=== PATIENT | female | born 1995 | race Caucasian/White ===

== ENCOUNTER 2019-06-27 17:34 | Emergency (ER) | payer OTHER ==
[~2019-06-27] VITALS: Ht 170.2 cm; Wt 87.7 kg
[~2019-06-27 17:34] MED LIST: ALBUTEROL SULFAT3 M3 IH
[2019-06-27 17:38] VITALS: BP 124/67; TEMP 97.7
[2019-06-27 18:21] LABS: BASO % 0.3 % (0.0-2.0); EOS # 0.3 (0.0-0.7); EOS % 2.6 % (0-4.0); GRAN # 6.4 (1.4-6.5); GRAN % 67.1 % (42.2-75.2); HEMOGLOBIN 13.4 g/dl (12.5-16.0); LYMPH # 1.7 (1.2-3.4); LYMPH % 17.8 % (20.0-51.0); MEAN CELL VOLUME 91 fl (80.0-100.0); MEAN CORPUSCULAR HEMOGLOBIN 30 pg (27.0-31.0); MEAN CORPUSCULAR HGB CONC 33 g/dl (33.0-37.0); MEAN PLATELET VOLUME 10.1 fl (7.4-10.4); MONO # 1.1 (0.1-0.6); MONO % 11.9 % (1.7-9.3); PLATELET COUNT 250 K/mm3 (130-400); RED BLOOD COUNT 4.49 M/mm3 (4.10-5.30); REDCELL DISTRIBUTION WIDTH-CV 12.8 % (11.5-14.5)
[2019-06-27 18:35] LABS: ALANINE AMINOTRANSFERASE < 6 U/L (9-52); ALBUMIN 4.3 gm/dL (3.5-5.0); ALKALINE PHOSPHATASE 109 U/L (50-136); ANION GAP 10 mmol/L (7-16); AST,SGOT 25 U/L (15-37); BILIRUBIN,TOTAL 0.9 mg/dL (0.0-1.0); BLOOD UREA NITROGEN 7 mg/dL (7-17); C-REACTIVE PROTEIN 1.7 mg/dL (0.0-0.9); CALCIUM 9.2 mg/dL (8.4-10.2); CARBON DIOXIDE 24 mmol/L (22-30); CHLORIDE 108 mmol/L (98-107); CREATININE, serum 0.75 (0.52-1.25); GLUCOSE 97 mg/dL (74-106); SODIUM 141 mmol/L (137-145); TOTAL PROTEIN 7.4 gm/dL (6.4-8.2)
[2019-06-27 21:08] VITALS: PULSE 63
== END 2019-06-27 21:08 | disposition home or self-care (01) ==
LOC: COL.ER 17:34
PROVIDERS: Nurse Practitioner
DX: R51 Headache (principal); F17.210 Nicotine dependence, cigarettes, uncomplicated; Z88.0 Allergy status to penicillin
CPT/HCPCS: J1200; J1885; J2550; J2765; J7030

== ENCOUNTER → 2019-09-23 | Outpatient (CLI) | payer OTHER ==
[2019-09-23 20:03] LABS: BASO % 0.4 % (0.0-2.0); EOS # 0.4 (0.0-0.7); GRAN # 6.5 (1.4-6.5); GRAN % 66.1 % (42.2-75.2); HEMATOCRIT 41.6 % (37.0-47.0); HEMOGLOBIN 13.6 g/dl (12.5-16.0); LYMPH # 2.2 (1.2-3.4); LYMPH % 21.8 % (20.0-51.0); MEAN CELL VOLUME 91 fl (80.0-100.0); MEAN CORPUSCULAR HEMOGLOBIN 30 pg (27.0-31.0); MEAN CORPUSCULAR HGB CONC 33 g/dl (33.0-37.0); MEAN PLATELET VOLUME 10.7 fl (7.4-10.4); MONO # 0.7 (0.1-0.6); MONO % 7.3 % (1.7-9.3); PLATELET COUNT 315 K/mm3 (130-400); RED BLOOD COUNT 4.58 M/mm3 (4.10-5.30); REDCELL DISTRIBUTION WIDTH-CV 12.9 % (11.5-14.5)
[2019-09-23 20:26] LABS: BILIRUBIN,TOTAL 0.3 mg/dL (0.0-1.0); C-REACTIVE PROTEIN 1.8 mg/dL (0.0-0.9); CALCIUM 10.2 mg/dL (8.4-10.2); CREATININE, serum 0.77 (0.52-1.25); POTASSIUM 4.6 mmol/L (3.4-5.0)
== END ==
LOC: ZCOL.LAB 17:31
PROVIDERS: Family Medicine
DX: R11.0 Nausea (principal); R10.9 Unspecified abdominal pain

== ENCOUNTER 2019-11-29 13:53 | Emergency (ER) | payer SELFPAY ==
[~2019-11-29] VITALS: Ht 170.2 cm; Wt 95.5 kg
[2019-11-29 14:39] LABS: COLLECTION METHOD CLEAN CATCH
[2019-11-29 14:43] LABS: BASO % 0.2 % (0.0-2.0); EOS # 0.1 (0.0-0.7); GRAN # 9.8 (1.4-6.5); GRAN % 74.1 % (42.2-75.2); HEMATOCRIT 39.4 % (37.0-47.0); HEMOGLOBIN 12.8 g/dl (12.5-16.0); LYMPH # 2.4 (1.2-3.4); LYMPH % 18.2 % (20.0-51.0); MEAN CELL VOLUME 89 fl (80.0-100.0); MEAN CORPUSCULAR HEMOGLOBIN 29 pg (27.0-31.0); MEAN CORPUSCULAR HGB CONC 33 g/dl (33.0-37.0); MEAN PLATELET VOLUME 10.2 fl (7.4-10.4); MONO # 0.8 (0.1-0.6); MONO % 6.2 % (1.7-9.3); PLATELET COUNT 270 K/mm3 (130-400); RED BLOOD COUNT 4.45 M/mm3 (4.10-5.30); REDCELL DISTRIBUTION WIDTH-CV 12.8 % (11.5-14.5)
[2019-11-29 14:47] LABS: MUCOUS Present /lpf; PH 5 (5-8); URINE APPEARANCE Hazy; URINE BACTERIA Rare /hpf; URINE BILIRUBIN Negative (NEGATIVE); URINE BLOOD 2+ (NEGATIVE); URINE COLOR Yellow; URINE GLUCOSE Negative (NEGATIVE); URINE KETONE Negative (NEGATIVE); URINE LEUKOCYTE ESTERASE Negative (NEGATIVE); URINE NITRATE Negative (NEGATIVE); URINE PROTEIN(semi-quant) Negative (NEGATIVE); URINE RBC 20-50 /hpf; URINE UROBILINOGEN Negative (NEGATIVE)
[2019-11-29 14:59] LABS: ALBUMIN 4.8 gm/dL (3.5-5.0); BILIRUBIN,TOTAL 0.4 mg/dL (0.0-1.0); C-REACTIVE PROTEIN 0.8 mg/dL (0.0-0.9); CALCIUM 9.6 mg/dL (8.4-10.2); CREATININE, serum 0.83 (0.52-1.25); POTASSIUM 3.9 mmol/L (3.4-5.0); TOTAL PROTEIN 7.8 gm/dL (6.4-8.2)
[2019-11-29] MEDS ORDERED: ZOFRAN ODT4 MG PO (15:52)
[2019-11-29 16:01] VITALS: BP 115/58; PULSE 70; TEMP 98
== END 2019-11-29 16:01 | disposition home or self-care (01) ==
LOC: COL.ER 13:53
PROVIDERS: Emergency Medicine; Physician Assistant
DX: R11.10 Vomiting, unspecified (principal); R10.32 Left lower quadrant pain; Z88.0 Allergy status to penicillin
CPT/HCPCS: J1885; J2405; J7030; Q9967

== ENCOUNTER 2019-12-21 15:55 | Emergency (ER) | payer OTHER ==
[~2019-12-21] VITALS: Ht 170.2 cm; Wt 97.3 kg
[~2019-12-21 15:55] MED LIST changes: +ZOFRAN ODT4 MG PO
[2019-12-21 16:00] VITALS: BP 127/75; TEMP 97.1
[2019-12-21 16:30] LABS: STREP SCREEN NEGATIVE
[2019-12-21 17:10] VITALS: PULSE 84
== END 2019-12-21 17:11 | disposition home or self-care (01) ==
LOC: COL.ER 15:55
PROVIDERS: Emergency Medicine
DX: J06.9 Acute upper respiratory infection, unspecified (principal); F17.210 Nicotine dependence, cigarettes, uncomplicated

== ENCOUNTER → 2020-01-26 | Outpatient (CLI) | payer OTHER ==
[2020-01-26 16:23] LABS: COLLECTION METHOD CLEAN CATCH
[2020-01-26 16:32] LABS: HEMATOCRIT 40.4 % (37.0-47.0); HEMOGLOBIN 13.2 g/dl (12.5-16.0); MEAN CELL VOLUME 87 fl (80.0-100.0); MEAN CORPUSCULAR HEMOGLOBIN 28 pg (27.0-31.0); MEAN CORPUSCULAR HGB CONC 33 g/dl (33.0-37.0); MEAN PLATELET VOLUME 10.8 fl (7.4-10.4); PLATELET COUNT 235 K/mm3 (130-400); RED BLOOD COUNT 4.64 M/mm3 (4.10-5.30); REDCELL DISTRIBUTION WIDTH-CV 13.5 % (11.5-14.5)
[2020-01-26 16:37] LABS: ALBUMIN 4.3 gm/dL (3.5-5.0); BILIRUBIN,TOTAL 0.5 mg/dL (0.0-1.0); CALCIUM 9.3 mg/dL (8.4-10.2); CREATININE, serum 0.77 (0.52-1.25); POTASSIUM 4.7 mmol/L (3.4-5.0); TOTAL PROTEIN 7.2 gm/dL (6.4-8.2)
[2020-01-26 17:07] LABS: PH 6 (5-8); URINE APPEARANCE Hazy; URINE BACTERIA Rare /hpf; URINE BILIRUBIN Negative (NEGATIVE); URINE BLOOD Negative (NEGATIVE); URINE COLOR Yellow; URINE GLUCOSE Negative (NEGATIVE); URINE KETONE Negative (NEGATIVE); URINE LEUKOCYTE ESTERASE Negative (NEGATIVE); URINE NITRATE Negative (NEGATIVE); URINE PROTEIN(semi-quant) Negative (NEGATIVE); URINE RBC 0-2 /hpf; URINE UROBILINOGEN Negative (NEGATIVE)
[2020-01-26 18:19] LABS: BAND 1 % (0-10); EOSINOPHIL 1 % (0-4); LYMPHOCYTE 38 % (20.0-51.0); NEUTROPHILS 59 % (42.0-75.2); PLATELET ESTIMATE NORMAL (NORMAL)
[2020-01-26 18:20] LABS: HYPOCHROMIA 1+
== END ==
LOC: ZCOL.LAB 16:19
PROVIDERS: Family Medicine
DX: R11.10 Vomiting, unspecified (principal); R35.0 Frequency of micturition

== ENCOUNTER 2020-11-06 16:00 | Emergency (ER) | payer OTHER ==
[~2020-11-06] VITALS: Ht 170.2 cm; Wt 95.5 kg
[2020-11-06 16:05] VITALS: TEMP 97.7
[2020-11-06 16:51] LABS: COLLECTION METHOD CLEAN CATCH
[2020-11-06 17:04] LABS: MUCOUS Present /lpf; PH 5 (5-8); SQUAMOUS EPITHELIAL 20-50 /hpf; URINE APPEARANCE Cloudy; URINE BACTERIA Occasional /hpf; URINE BILIRUBIN Negative (NEGATIVE); URINE BLOOD Negative (NEGATIVE); URINE CALCIUM OXALATE CRYSTAL Present /hpf; URINE COLOR Yellow; URINE GLUCOSE Negative (NEGATIVE); URINE KETONE Trace (NEGATIVE); URINE LEUKOCYTE ESTERASE Trace (NEGATIVE); URINE NITRATE Negative (NEGATIVE); URINE PROTEIN(semi-quant) 1+ (NEGATIVE)
[2020-11-06 17:05] LABS: BASO % 0.2 % (0.0-2.0); EOS # 0.3 (0.0-0.7); EOS % 3.2 % (0-4.0); GRAN # 6.7 (1.4-6.5); GRAN % 63.7 % (42.2-75.2); HEMOGLOBIN 11.5 g/dl (12.5-16.0); LYMPH # 2.7 (1.2-3.4); LYMPH % 25.4 % (20.0-51.0); MEAN CELL VOLUME 83 fl (80.0-100.0); MEAN CORPUSCULAR HEMOGLOBIN 27 pg (27.0-31.0); MEAN CORPUSCULAR HGB CONC 33 g/dl (33.0-37.0); MEAN PLATELET VOLUME 9.8 fl (7.4-10.4); MONO # 0.8 (0.1-0.6); MONO % 7.2 % (1.7-9.3); PLATELET COUNT 297 K/mm3 (130-400); RED BLOOD COUNT 4.23 M/mm3 (4.10-5.30)
[2020-11-06 17:07] LABS: HEMATOCRIT 35.2 % (37.0-47.0)
[2020-11-06 17:15] LABS: ALBUMIN 4.2 gm/dL (3.5-5.0); BILIRUBIN,TOTAL 0.3 mg/dL (0.0-1.0); CALCIUM 9.4 mg/dL (8.4-10.2); CREATININE, serum 0.68 (0.52-1.25); POTASSIUM 3.3 mmol/L (3.4-5.0); TOTAL PROTEIN 7.1 gm/dL (6.4-8.2)
[2020-11-06] MEDS ORDERED: OMNICEF 300MG300 MG PO ×2 (18:54→18:58)
[2020-11-06 19:00] VITALS: BP 127/84; PULSE 96
== END 2020-11-06 19:00 | disposition home or self-care (01) ==
LOC: COL.ER 16:00
PROVIDERS: Nurse Practitioner Family
DX: O23.11 Infections of bladder in pregnancy, first trimester (principal); Z3A.01 Less than 8 weeks gestation of pregnancy; Z88.0 Allergy status to penicillin; Z88.1 Allergy status to other antibiotic agents

== ENCOUNTER 2021-01-21 19:52 | Observation (INO) | payer MEDICAID ==
[~2021-01-21] VITALS: Ht 170.2 cm; Wt 93.2 kg
[~2021-01-21 19:52] MED LIST changes: +OMNICEF 300MG300 MG PO
[2021-01-21 21:03] LABS: BASO % 0.1 % (0.0-2.0); EOS # 0.1 (0.0-0.7); EOS % 0.5 % (0-4.0); GRAN # 11.8 (1.4-6.5); HEMOGLOBIN 12.2 g/dl (12.5-16.0); LYMPH % 7.1 % (20.0-51.0); MEAN CELL VOLUME 87 fl (80.0-100.0); MEAN CORPUSCULAR HEMOGLOBIN 29 pg (27.0-31.0); MEAN CORPUSCULAR HGB CONC 33 g/dl (33.0-37.0); MEAN PLATELET VOLUME 10.5 fl (7.4-10.4); MONO # 0.5 (0.1-0.6); MONO % 3.9 % (1.7-9.3); PLATELET COUNT 233 K/mm3 (130-400); RED BLOOD COUNT 4.23 M/mm3 (4.10-5.30); REDCELL DISTRIBUTION WIDTH-CV 15.5 % (11.5-14.5)
[2021-01-21 21:04] LABS: HEMATOCRIT 36.8 % (37.0-47.0)
[2021-01-21 21:12] LABS: ALBUMIN 3.8 gm/dL (3.5-5.0); BILIRUBIN,TOTAL 0.2 mg/dL (0.0-1.0); CALCIUM 9.2 mg/dL (8.4-10.2); CREATININE, serum 0.53 (0.52-1.25); POTASSIUM 3.7 mmol/L (3.4-5.0); TOTAL PROTEIN 6.8 gm/dL (6.4-8.2)
[2021-01-21 22:12] LABS: COLLECTION METHOD CLEAN CATCH
[2021-01-21 22:20] LABS: MUCOUS Present /lpf; PH 5 (5-8); URINE APPEARANCE Hazy; URINE BACTERIA Moderate /hpf; URINE BILIRUBIN Negative (NEGATIVE); URINE BLOOD Negative (NEGATIVE); URINE COLOR Yellow; URINE GLUCOSE Negative (NEGATIVE); URINE KETONE 1+ (NEGATIVE); URINE LEUKOCYTE ESTERASE Negative (NEGATIVE); URINE NITRATE Negative (NEGATIVE); URINE PROTEIN(semi-quant) Negative (NEGATIVE); URINE RBC 0-2 /hpf; URINE UROBILINOGEN Negative (NEGATIVE)
[2021-01-22] MEDS ORDERED: VITAMIN B-625 MG PO (01:17)
[2021-01-22] MEDS ORDERED: UNISOM25 MG PO (01:17)
[2021-01-22] MEDS ORDERED: ZOLOFT 25MG25 MG PO (01:18)
[2021-01-22 01:25] VITALS: BP 111/55; PULSE 102; TEMP 99.1
--- NOTE | 2021-01-22 03:12 | NUR ---
Patient arrived to medical floor room 318 from ER at approximately 0035. Patient vomiting as being transferred into bed. Call placed to Dr. Duarte. New orders for Zofran 4 mg IV Q4H PRN, Acetaminophen 650 mg po Q4H PRN, general diet as tolerated, and morphine 1-2 mg PRN IV Q4H PRN pain. Patient given PRN Zofran. Patient given water, sprite, jello, and popsicle as requested. Did allow IV fluids to be started to peripheral INT to right AC. Site without redness, warmth, swelling, and pain. Denies SOB and dyspnea. LS CTA. Respirations even and unlabored. HRR. Capillary refill less than 3 seconds. Non-tenting skin turgor. BSAx4. Abdomen soft and non-tender. No edema. Patient voices no questions, needs, or concerns at this time. Resting in bed with call light within reach.
[2021-01-22 04:57] VITALS: BP 116/60; PULSE 98; TEMP 98.9
--- NOTE | 2021-01-22 05:53 | NUR ---
Patient has not had any further complaints of pain, discomfort, nausea, or vomiting this shift. Voices no questions, needs, or concerns at this time. Resting in bed with call light within reach.
--- NOTE | 2021-01-22 07:40 | NUR ---
Assessment complete. Pt resting in bed with eyes closed upon entering room, resp even and unlabored. Pt alert to stimuli, awakens and reports pain to bilat legs, cramping 5 out of 10. PRN Tylenol administered per orders. Pt reports only a slight nausea feeling at this time. Saline lock IV to right AC without s/s of complications. No further needs reported. Call light in reach.
[2021-01-22 07:49] VITALS: BP 110/28; PULSE 95; TEMP 99
--- NOTE | 2021-01-22 11:24 | NUR ---
SW met with patient to conduct intake evaluation. Patient lives at home in [facility] with her mother Chandrika (P# [phone]) and Griselda (P# [phone]). Patient does not have a DPOA-HC and is not interested in the paperwork at this time. Patient's PCP is Dr. Ricketts in [place]. [facility]. Patient is independent at home and requires no DME. Patient denies concerns affording medications. Patient plans to return home upon discharge and will drive herself home via private vehicle. Patient denies questions or concerns at this time. Social work will continue to follow.
--- NOTE | 2021-01-22 12:30 | NUR ---
Pt's covid test result is negative. Discharge instructions reviewed with pt and IV discontinued from right AC with tip intact. Pt waiting for clothes from her mother.
[2021-01-22 12:47] VITALS: BP 99/54; PULSE 92; TEMP 98
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
== END 2021-01-22 13:25 | disposition home or self-care (01) ==
LOC: COL.ER 19:52 → MEDICAL 22:52
PROVIDERS: Physician Assistant; ADMIT Obstetrics & Gynecology
DX: O26.892 Other specified pregnancy related conditions, second trimester (principal); M54.5 Low back pain; R11.2 Nausea with vomiting, unspecified; F17.210 Nicotine dependence, cigarettes, uncomplicated; Z3A.16 16 weeks gestation of pregnancy; Z88.0 Allergy status to penicillin; Z88.1 Allergy status to other antibiotic agents; Z91.018 Allergy to other foods; Z20.822 Contact with and (suspected) exposure to COVID-19
CPT/HCPCS: G0378; J0696; J2405; J2550; J2765; J7030

== ENCOUNTER → 2021-05-11 | Outpatient (CLI) | payer MEDICAID ==
[~2021-05-11] MED LIST changes: +IBU600 MG PO; +NATURAL IRON65 MG; +PRENATAL; +ROXICODONE 55 MG/TAB PO; +UNISOM25 MG PO; +VITAMIN B-625 MG PO; +ZOLOFT 25MG25 MG PO
== END ==
LOC: DIA.ED 07:15
DX: O24.419 Gestational diabetes mellitus in pregnancy, unspecified control (principal)
CPT/HCPCS: G0108

== ENCOUNTER 2021-06-01 22:38 | Outpatient (CLI) | payer MEDICAID ==
[~2021-06-01] VITALS: Ht 167.6 cm; Wt 103.6 kg
[~2021-06-01 22:38] MED LIST changes: -IBU600 MG PO; -NATURAL IRON65 MG; -PRENATAL; -ROXICODONE 55 MG/TAB PO
--- NOTE | 2021-06-01 23:00 | NUR ---
PT ARRIVES AMBULATORY TO UNIT C/O ABDOMINAL PAIN RADIATING TO LOWER BACK, STATES SHE BELIEVES SHE WAS HAVING CONTRACTIONS THIS AFTERNOON 20 MINUTES APART. DENIES LEAKING OF FLUID. REPORTS POSITIVE MOVEMENT. ASSISTED INTO GOWN AND PLACED ON EFM. CATEGORY 1 STRIP. SVE ATTEMPT BUT CERVIX STILL HIGH AND UNABLE TO OBTAIN FURTHER CHECK. NO CONTRACTIONS PALPATED OR TRACING ON TOCO. UPDATED (SEE PHYS NOTIFICATION). WILL CONTINUE TO MONITOR.
[2021-06-01] MEDS ORDERED: PRENATAL (23:05)
[2021-06-01 23:30] VITALS: BP 112/59; PULSE 83; TEMP 98.9
[2021-06-02] VITALS: BP 94/55; PULSE 84
[2021-06-02 00:08] LABS: COLLECTION METHOD CLEAN CATCH
[2021-06-02 00:18] LABS: MUCOUS Present /lpf; PH 5 (5-8); URINE APPEARANCE Cloudy; URINE BACTERIA Rare /hpf; URINE BILIRUBIN Negative (NEGATIVE); URINE BLOOD Negative (NEGATIVE); URINE COLOR Yellow; URINE GLUCOSE Negative (NEGATIVE); URINE KETONE Negative (NEGATIVE); URINE LEUKOCYTE ESTERASE Trace (NEGATIVE); URINE NITRATE Negative (NEGATIVE); URINE PROTEIN(semi-quant) Negative (NEGATIVE); URINE UROBILINOGEN Negative (NEGATIVE)
[2021-06-02 00:30] VITALS: BP 104/57; PULSE 85
--- NOTE | 2021-06-02 00:58 | NUR ---
ALL DC PAPERWORK REVIEWED AND UNDERSTOOD. PT DENIES FURTHER QUESTIONS OR CONCERNS.
== END 2021-06-02 00:58 | disposition home or self-care (01) ==
LOC: LDRO 22:38 → LDR 23:00
PROVIDERS: Obstetrics & Gynecology
DX: O62.9 Abnormality of forces of labor, unspecified (principal); O26.893 Other specified pregnancy related conditions, third trimester; R10.9 Unspecified abdominal pain; Z3A.34 34 weeks gestation of pregnancy

== ENCOUNTER 2021-06-22 16:34 | Outpatient (CLI) | payer MEDICAID ==
[~2021-06-22] VITALS: Ht 167.6 cm; Wt 108.2 kg
[~2021-06-22 16:34] MED LIST changes: +PRENATAL
--- NOTE | 2021-06-22 16:45 | NUR ---
Pt arrived on unit with complaints of contractions. Pt denies any leaking of fluid or vaginal bleeding and reports normal movement. EFM and toco monitors started. Vital signs WNL. SVE by this RN FT//-2 Dr. Quintana on the unit. FHR tracing reviewed. Pt requesting to go home since there has been no change since SVE in clinic on 06/21. Orders for discharge home received.
[2021-06-22] MEDS ORDERED: NATURAL IRON65 MG (17:23)
[2021-06-22 17:30] VITALS: BP 138/65; PULSE 101; TEMP 98.1
== END 2021-06-22 17:45 | disposition home or self-care (01) ==
LOC: LDRO 16:34 → LDR 17:26 → LDRO 17:45
DX: O62.9 Abnormality of forces of labor, unspecified (principal); Z3A.37 37 weeks gestation of pregnancy
CPT/HCPCS: OP

== ENCOUNTER 2021-07-10 10:55 | Inpatient (IN) | payer MEDICAID ==
[~2021-07-10] VITALS: Ht 170.2 cm; Wt 109.1 kg
[~2021-07-10 10:55] MED LIST changes: +NATURAL IRON65 MG
[2021-07-11] VITALS (62 sets, daily range): BP systolic 98–180; BP diastolic 51–105; PULSE 67–103; TEMP 97.9–98.1
[2021-07-11 07:38] LABS: BASO % 0.1 % (0.0-2.0); EOS # 0.1 (0.0-0.7); EOS % 0.5 % (0-4.0); GRAN # 11.9 (1.4-6.5); GRAN % 78.3 % (42.2-75.2); HEMOGLOBIN 10.7 g/dl (12.5-16.0); LYMPH # 1.9 (1.2-3.4); LYMPH % 12.7 % (20.0-51.0); MEAN CELL VOLUME 85 fl (80.0-100.0); MEAN CORPUSCULAR HEMOGLOBIN 27 pg (27.0-31.0); MEAN CORPUSCULAR HGB CONC 31 g/dl (33.0-37.0); MEAN PLATELET VOLUME 12.9 fl (7.4-10.4); MONO # 1.2 (0.1-0.6); MONO % 7.7 % (1.7-9.3); PLATELET COUNT 269 K/mm3 (130-400); RED BLOOD COUNT 4.04 M/mm3 (4.10-5.30); REDCELL DISTRIBUTION WIDTH-CV 17.2 % (11.5-14.5)
--- NOTE | 2021-07-11 07:38 | NUR ---
0615 PATIENT HERE FOR INDUCTION. EFM ON FHT 130 BABY VERY ACTIVE. OCCASIONAL CONTRACTION NOTED BUT MILD. ASSESSMENT COMPLETED. IV STARTED IN LEFT WRIST. CONSENTS SIGNED. PATIENT VERY NERVOUS.
[2021-07-11 07:39] LABS: HEMATOCRIT 34.2 % (37.0-47.0)
--- NOTE | 2021-07-11 09:30 | NUR ---
0845 PATIENT WANTS EPIDURAL. RASHARD ECHEVERRIA CALLED. 0900 RASHARD ECHEVERRIA AT BEDSIDE. PATIENT SITS UP ON EDGE OF BED FOR EPIDURAL PLACEMENT. TOLERATES WELL. SEE CHILDREN COUNSELOR NOTES.
--- NOTE | 2021-07-11 09:50 | NUR ---
PITOCIN DECREASED TO 8MU
--- NOTE | 2021-07-11 11:52 | NUR ---
1135 3 MIN DECELERATION IN 80 AND RETURN TO [address] RODRIGUEZ CALLED AND UPDATED NO NEW ORDERS
--- NOTE | 2021-07-11 13:28 | NUR ---
1300 DR RODRIGUEZ AT BEDSIDE. SVE IUPC PLACED AT THIS TIME, AND SCALP ELECTRODE PLACED ALSO. PATIENT TOLERATES WITH OUT DIFFICULTY.
--- NOTE | 2021-07-11 14:24 | NUR ---
1410 FHT DECREASE IN 90'S FOR 3 MIN AND INCREASE TO 112
--- NOTE | 2021-07-11 17:18 | NUR ---
1655 5 MIN DECELERATION IN 80'S REPOSITIONED PATIENT FROM LEFT TO HIGH RIGHT AND BACK. PITOCIN OFF. O2 10L MASK ON. SVE / DR RODRIGUEZ CALLED AND UPDATED ON ALL ABOVE INFORMATION. NO NEW ORDERS AT THIS TIME
--- NOTE | 2021-07-11 17:47 | NUR ---
1744 PATIENT COMPLAINS OF RIGHT LOWER PAIN AND BACK PAIN. Mindi HOPPER FELT DYEING MACHINE TENDER AT BEDSIDE TO EVALUATE EPIDURAL AND DOSE WITH MEDICINE.
--- NOTE | 2021-07-11 18:19 | NUR ---
1800 PATIENT SITS UP ON EDGE OF BED FOR EPIDURAL REPLACEMENT. Mindi HOPPER CRNA AT BEDSIDE. PATIENT TOLERATES WELL
--- NOTE | 2021-07-11 20:11 | NUR ---
MIGUEL ÁNGEL Smith. explained to pt that she would start pushing soon. Pt becomes anxious asking "is it going to hurt, what if I can't push, why am I still itchy??" Emotional support and reassurances given.
--- NOTE | 2021-07-11 21:12 | NUR ---
Pushing well. FHT's well decelerations to 70's with pushing. baseline 100-110, grigsby catheter dc'd. 2114 Dr Quintana into room. [address] Quintana.
--- NOTE | 2021-07-11 21:21 | NUR ---
Pt cuts cord. Placenta delivers spont and intact with 3 vessell cord. Pitocin gtt to bolus rate. Pt and mom loving and excited about .
--- NOTE | 2021-07-11 21:30 | NUR ---
Unable to obtain BP r/t pt moving arm and holding baby. Perineal repair in progress.
--- NOTE | 2021-07-11 21:40 | NUR ---
Perineal repair complete, pericare completed, ice pack to perineum, bed together.
[2021-07-12] VITALS: BP 109/63; PULSE 90; TEMP 97.9
--- NOTE | 2021-07-12 00:35 | NUR ---
Up to bathroom with steady gait. Voids large amount, performs own pericare, clean gown on. Upon standing pt states "I'm a little dizzy" Back to labor bed with assistance. Relaxes on bed x 5 minutes then states "I think I'm ready to move now" Pivot transfer to wheelchair, and transferred to . Pivot transfered back to bed. Instructed not to get up without staff assistance. Encouraged to rest.
[2021-07-12 04:30] VITALS: BP 101/55; PULSE 82; TEMP 98.8
[2021-07-12 06:55] VITALS: BP 121/55; PULSE 85; TEMP 97.6
[2021-07-12 16:42] VITALS: BP 105/69; PULSE 79; TEMP 98
[2021-07-12 20:07] VITALS: BP 113/59; PULSE 84; TEMP 98.2
[2021-07-13 08:01] VITALS: BP 117/62; PULSE 81; TEMP 98.1
[2021-07-13] MEDS ORDERED: IBU600 MG PO (08:58)
[2021-07-13] MEDS ORDERED: ROXICODONE 55 MG/TAB PO (08:59)
--- NOTE | 2021-07-13 11:15 | NUR ---
DISCHARGE TEACHING COMPLETED. EDUCATED ON 6 WEEK FOLLOW UP APPOINTMENT AND PRESCRIPTIONS TO BEGIN AND CONTINUE TAKING. QUESTIONS INVITED AND ANSWERED.
== END 2021-07-13 11:40 | disposition home or self-care (01) | DRG 806 ==
LOC: OB 10:55 → LDR 07-11 05:59 → OB 07-11 05:59
PROVIDERS: ADMIT Obstetrics & Gynecology
PROC: 10E0XZZ Delivery of Products of Conception, External Approach (ICD-10-PCS; principal; 2021-07-11)
PROC: 0HQ9XZZ Repair Perineum Skin, External Approach (ICD-10-PCS; 2021-07-11)
PROC: 3E033VJ Introduction of Other Hormone into Peripheral Vein, Percutaneous Approach (ICD-10-PCS; 2021-07-11)
DX: O48.0 Post-term pregnancy (principal); O98.32 Other infections with a predominantly sexual mode of transmission complicating childbirth; Z37.0 Single live birth; O24.420 Gestational diabetes mellitus in childbirth, diet controlled; O99.02 Anemia complicating childbirth; O99.344 Other mental disorders complicating childbirth; D64.9 Anemia, unspecified; F32.9 Major depressive disorder, single episode, unspecified; O99.214 Obesity complicating childbirth; O70.0 First degree perineal laceration during delivery; A56.8 Sexually transmitted chlamydial infection of other sites; Z3A.40 40 weeks gestation of pregnancy
CPT/HCPCS: J1200; J2400; J2590; J7120

== ENCOUNTER → 2021-11-17 | Outpatient (CLI) | payer MEDICAID ==
[~2021-11-17] MED LIST changes: +IBU600 MG PO; +ROXICODONE 55 MG/TAB PO
[2021-11-17 15:59] LABS: HEMOGLOBIN 11.1 g/dl (12.5-16.0); MEAN CELL VOLUME 79 fl (80.0-100.0); MEAN CORPUSCULAR HEMOGLOBIN 24 pg (27-31); MEAN CORPUSCULAR HGB CONC 31 g/dl (33.0-37.0); MEAN PLATELET VOLUME 10.2 fl (7.4-10.4); PLATELET COUNT 312 K/mm3 (130-400); RED BLOOD COUNT 4.57 M/mm3 (4.10-5.30); REDCELL DISTRIBUTION WIDTH-CV 15.3 % (11.5-14.5)
[2021-11-17 16:14] LABS: ALBUMIN 4.3 gm/dL (3.5-5.0); BILIRUBIN,TOTAL 0.3 mg/dL (0.2-1.2); CALCIUM 9.2 mg/dL (8.4-10.2); CREATININE, serum 0.82 mg/dL (0.57-1.11); POTASSIUM 3.7 mmol/L (3.5-4.5); TOTAL PROTEIN 7.4 gm/dL (6.2-8.1)
[2021-11-17 16:15] LABS: HEMATOCRIT 35.9 % (37.0-47.0)
[2021-11-17 16:33] LABS: THYROID STIMULATING HORMONE 1.579 uIU/mL (0.350-4.940)
== END ==
LOC: COL.LAB 15:32
PROVIDERS: Psychiatry & Neurology Psychiatry
DX: F43.12 Post-traumatic stress disorder, chronic (principal)

== ENCOUNTER → 2022-03-27 | Outpatient (CLI) | payer MEDICAID | LOC: COL.RAD 08:14 | DX: M54.50 Low back pain, unspecified (principal); R20.0 Anesthesia of skin; R20.2 Paresthesia of skin; R53.1 Weakness; R29.2 Abnormal reflex ==

== ENCOUNTER 2022-07-14 11:23 | Emergency (ER) | payer BC, MEDICAID ==
[~2022-07-14] VITALS: Ht 170.2 cm; Wt 90.9 kg
[2022-07-14 12:40] VITALS: TEMP 98
[2022-07-14] MEDS ORDERED: LUNESTA2 MG (12:48)
[2022-07-14 13:03] LABS: BASO % 0.3 % (0.0-2.0); EOS # 0.3 K/mm3 (0.0-0.7); EOS % 3.2 % (0.0-4.0); GRAN # 4.8 K/mm3 (1.4-6.5); GRAN % 61.7 % (42.2-75.2); HEMOGLOBIN 10.2 g/dl (12.5-16.0); LYMPH # 2.2 K/mm3 (1.2-3.4); LYMPH % 27.8 % (20.0-51.0); MEAN CELL VOLUME 76 fl (80.0-100.0); MEAN CORPUSCULAR HEMOGLOBIN 23 pg (27-31); MEAN CORPUSCULAR HGB CONC 31 g/dl (33.0-37.0); MEAN PLATELET VOLUME 10.3 fl (7.4-10.4); MONO # 0.5 K/mm3 (0.1-0.6); MONO % 6.7 % (1.7-9.3); PLATELET COUNT 232 K/mm3 (130-400); RED BLOOD COUNT 4.38 M/mm3 (4.10-5.30); REDCELL DISTRIBUTION WIDTH-CV 16.7 % (11.5-14.5)
[2022-07-14 13:04] LABS: HEMATOCRIT 33.2 % (37.0-47.0)
[2022-07-14 13:17] LABS: COLLECTION METHOD CLEAN CATCH
[2022-07-14 13:21] LABS: PH 5.5 (5.0-8.5); URINE APPEARANCE Hazy (CLEAR/HAZY); URINE COLOR Yellow (YELLOW); URINE GLUCOSE Negative (NEGATIVE); URINE KETONE Negative (NEGATIVE); URINE PROTEIN(semi-quant) Negative (NEGATIVE)
[2022-07-14 13:22] LABS: URINE BLOOD Negative (NEGATIVE); URINE NITRATE Negative (NEGATIVE); URINE UROBILINOGEN 0.2 E.U/dL (0.2-1.0)
[2022-07-14 13:22] LABS: ALBUMIN 3.8 gm/dL (3.5-5.0); BILIRUBIN,TOTAL 0.3 mg/dL (0.2-1.2); CALCIUM 9.5 mg/dL (8.4-10.2); CREATININE, serum 0.75 mg/dL (0.57-1.11); POTASSIUM 3.3 mmol/L (3.5-4.5); TOTAL PROTEIN 6.9 gm/dL (6.2-8.1)
[2022-07-14 13:23] LABS: MUCOUS Present (NOT PRESENT); SQUAMOUS EPITHELIAL 0-2 /hpf (0-10); URINE BACTERIA None Seen /hpf (NONE SEEN); URINE RBC 0-2 /hpf (0-2)
[2022-07-14 15:45] VITALS: BP 114/76; PULSE 80
[2022-07-14] MEDS ORDERED: PRILOSEC 20MG20 MG PO (15:47)
== END 2022-07-14 16:00 | disposition home or self-care (01) ==
LOC: COL.ER 11:23
PROVIDERS: Nurse Practitioner Family
DX: R10.11 Right upper quadrant pain (principal); F17.200 Nicotine dependence, unspecified, uncomplicated
CPT/HCPCS: J1885; J2270; J2405; J7030; Q9967

== ENCOUNTER 2022-07-16 09:51 | Emergency (ER) | payer BC, MEDICAID ==
[~2022-07-16] VITALS: Ht 170.2 cm; Wt 90.9 kg
[~2022-07-16 09:51] MED LIST changes: +LUNESTA2 MG; +PRILOSEC 20MG20 MG PO
[2022-07-16 10:15] VITALS: TEMP 98.4
[2022-07-16 10:55] LABS: BASO % 0.2 % (0.0-2.0); EOS # 0.2 K/mm3 (0.0-0.7); EOS % 4.9 % (0.0-4.0); GRAN # 2.2 K/mm3 (1.4-6.5); HEMATOCRIT 34.6 % (37.0-47.0); HEMOGLOBIN 10.8 g/dl (12.5-16.0); LYMPH # 1.3 K/mm3 (1.2-3.4); LYMPH % 32.1 % (20.0-51.0); MEAN CELL VOLUME 76 fl (80.0-100.0); MEAN CORPUSCULAR HEMOGLOBIN 24 pg (27-31); MEAN CORPUSCULAR HGB CONC 31 g/dl (33.0-37.0); MEAN PLATELET VOLUME 10.6 fl (7.4-10.4); MONO # 0.4 K/mm3 (0.1-0.6); MONO % 9.6 % (1.7-9.3); PLATELET COUNT 230 K/mm3 (130-400); RED BLOOD COUNT 4.57 M/mm3 (4.10-5.30)
[2022-07-16 11:07] LABS: ALBUMIN 3.8 gm/dL (3.5-5.0); BILIRUBIN,TOTAL 0.3 mg/dL (0.2-1.2); CALCIUM 9.3 mg/dL (8.4-10.2); CREATININE, serum 0.75 mg/dL (0.57-1.11); POTASSIUM 3.6 mmol/L (3.5-4.5); TOTAL PROTEIN 7.1 gm/dL (6.2-8.1)
[2022-07-16] MEDS ORDERED: NORCO 325 MG-51 TAB PO (11:26)
[2022-07-16] MEDS ORDERED: ZOFRAN ODT4 MG PO (11:26)
[2022-07-16 12:08] LABS: COLLECTION METHOD CLEAN CATCH
[2022-07-16 12:22] LABS: MUCOUS Present (NOT PRESENT); URINE BACTERIA None Seen /hpf (NONE SEEN); URINE COLOR Yellow (YELLOW); URINE RBC 0-2 /hpf (0-2)
[2022-07-16 12:23] LABS: PH 6.5 (5.0-8.5); URINE APPEARANCE Hazy (CLEAR/HAZY); URINE GLUCOSE Negative (NEGATIVE); URINE KETONE TRACE (NEGATIVE); URINE PROTEIN(semi-quant) TRACE (NEGATIVE)
[2022-07-16 12:24] LABS: URINE BLOOD 1+ (NEGATIVE); URINE NITRATE Negative (NEGATIVE); URINE UROBILINOGEN 0.2 E.U/dL (0.2-1.0)
[2022-07-16 13:19] VITALS: BP 100/68; PULSE 80
== END 2022-07-16 13:21 | disposition home or self-care (01) ==
LOC: COL.ER 09:51
PROVIDERS: Physician Assistant
DX: R10.11 Right upper quadrant pain (principal); Z32.02 Encounter for pregnancy test, result negative; Z20.822 Contact with and (suspected) exposure to COVID-19; Z28.310 Unvaccinated for COVID-19
CPT/HCPCS: J1885; J2270; J2405; J7030

== ENCOUNTER → 2022-07-18 | Outpatient (CLI) | payer BC, MEDICAID ==
[~2022-07-18] MED LIST changes: +NORCO 325 MG-51 TAB PO
== END ==
LOC: COL.RAD 07:32
DX: R10.11 Right upper quadrant pain (principal)

== ENCOUNTER → 2022-08-02 | Outpatient (CLI) | payer BC, MEDICAID | LOC: COL.RAD 06:49 | DX: R10.11 Right upper quadrant pain (principal) | CPT/HCPCS: A9537; J2805 ==

== ENCOUNTER 2023-02-09 16:47 | Emergency (ER) | payer MEDICAID ==
[~2023-02-09] VITALS: Ht 170.2 cm; Wt 86.4 kg
[~2023-02-09 16:47] MED LIST changes: +ATIVAN 1MG T1 MG/TAB PO; +EPIPEN 2-PAK1 MG/ML IM; +MOTRIN 600600 MG/TAB PO; +PREDNISONE20 MG PO; +PROVENTIL0.09 MG/A1 IH; +PROVIGIL200 MG PO
[2023-02-09 16:49] VITALS: TEMP 99.1
[2023-02-09 17:58] VITALS: BP 119/82; PULSE 97
== END 2023-02-09 18:02 | disposition home or self-care (01) ==
LOC: COL.ER 16:47
DX: U07.1 COVID-19 (principal); R09.81 Nasal congestion; R05.9 Cough, unspecified; J02.9 Acute pharyngitis, unspecified; R51.9 Headache, unspecified; M79.10 Myalgia, unspecified site

== ENCOUNTER → 2024-06-26 | Outpatient (CLI) | payer OTHER ==
[2024-06-26 08:56] LABS: MEAN CELL VOLUME 74 fl (80.0-100.0); MEAN CORPUSCULAR HGB CONC 31 g/dl (33.0-37.0); MEAN PLATELET VOLUME 9.7 fl (7.4-10.4); PLATELET COUNT 278 K/mm3 (130-400); RED BLOOD COUNT 4.33 M/mm3 (4.10-5.30)
[2024-06-26 08:59] LABS: HEMOGLOBIN 9.9 g/dl (12.5-16.0); MEAN CORPUSCULAR HEMOGLOBIN 23 pg (27-31)
[2024-06-26 09:12] LABS: ALBUMIN 3.6 g/dL (3.5-5.0); BILIRUBIN,TOTAL 0.4 mg/dL (0.2-1.2); CALCIUM 9.2 mg/dL (8.4-10.2); CHOLESTEROL RISK RATIO 4.7; CREATININE, serum 0.78 mg/dL (0.57-1.11); POTASSIUM 3.7 mEq/L (3.5-4.5); TOTAL PROTEIN 6.5 g/dl (6.2-8.1)
[2024-06-26 09:31] LABS: TSH w REFLEX 1.313 uIU/mL (0.350-4.940)
== END ==
LOC: COL.LAB 07:59
PROVIDERS: Family Medicine
DX: E66.9 Obesity, unspecified (principal); R63.8 Other symptoms and signs concerning food and fluid intake; Z68.39 Body mass index [BMI] 39.0-39.9, adult